=== PATIENT | male | born 1955 | race Caucasian/White ===

== ENCOUNTER 2016-07-23 23:17 | Emergency (ER) | payer OTHER ==
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
[2016-07-23 23:51] VITALS: BP 170/88
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
== END 2016-07-24 00:40 | disposition left against medical advice (07) ==
LOC: MW.ED 23:17
DX: S06.0X9A Concussion with loss of consciousness of unspecified duration, initial encounter (principal); R04.0 Epistaxis; Z23 Encounter for immunization; F17.200 Nicotine dependence, unspecified, uncomplicated; T74.21XA Adult sexual abuse, confirmed, initial encounter
CPT/HCPCS: 70450; 70450-26; 70486; 70486-26; 72125; 72125-26; 99283; 99285-25

== ENCOUNTER 2018-01-05 15:44 | Emergency (ER) | payer OTHER ==
--- NOTE | 2018-01-05 17:07 | EDM.PDOC ---
ED HPI GENERAL MEDICAL PROBLEM - General Chief Complaint: General Stated Complaint: MEDICAL CLEARENCE Time Seen by Provider: 01/05/18 16:06 Source of Information: Reports: Patient History Limitations: Reports: No Limitations - History of Present Illness INITIAL COMMENTS - FREE TEXT/NARRATIVE: HISTORY AND PHYSICAL: History of present illness: Patient is a 62-year-old male who presents to the emergency room with complaints of a generalized headache and high blood pressure. Currently in the custody of law enforcement in here for a medical screening examination. Patient states that he previously had taken 3 separate medications for his blood pressure but has not taken these medications in the past 2-3 months. He states [place] and has not found a primary care provider to have these medications refilled. The recent head injury, trauma or falls. He denies any change in vision, dizziness, near-syncope or syncope. Denies any fever, chills, chest pain, shortness of breath or cough. Denies any GI or symptoms. Review of systems: As per history of present illness and below otherwise all systems reviewed and negative. Past medical history: As per history of present illness and as reviewed below otherwise noncontributory. Surgical history: As per history of present illness and as reviewed below otherwise noncontributory. Social history: No reported history of drug or alcohol abuse. Family history: As per history of present illness and as reviewed below otherwise noncontributory. Physical exam: General: Well-developed and well-nourished 62-year-old male. Alert and oriented. Nontoxic appearing and in no acute distress. HEENT: Atraumatic, normocephalic, pupils equal and reactive bilaterally, negative for conjunctival pallor or scleral icterus, mucous membranes moist, throat clear, neck supple, nontender, trachea midline. No drooling or trismus noted. No meningeal signs Lungs: Clear to auscultation, breath sounds equal bilaterally, chest nontender. Heart: S1S2, regular rate and rhythm without overt murmur Abdomen: Soft, nondistended, nontender. Negative for masses or hepatosplenomegaly. Negative for costovertebral tenderness. Pelvis: Stable nontender. Genitourinary: Deferred. Rectal: Deferred. Skin: Intact, warm, dry. No lesions or rashes noted. Extremities: Atraumatic, negative for cords or calf pain. Neurovascular unremarkable. Neuro: Awake, alert, oriented. Cranial nerves II through XII unremarkable. Cerebellum unremarkable. Motor and sensory unremarkable throughout. Exam nonfocal. Notes: Patient describes this headache as a dull headache. Does not describe it as the worst headache of his life. He believes the headache is due to his elevated blood pressure. States that if law enforcement didn't enforce him to be medical evaluated for clearance, he would not be at the ER. Patient states that he has not taken his blood pressure medications in the past 2-3 months. He does not know the name of these medications, dosing or frequency. HIs is unable to give us the name of the and/or pharmacy and which she had attended and had his medications refilled. Patient's blood pressure reading is elevated. I will give him lisinopril 10 mg once daily, limited amount until he is able to follow-up with a local provider to establish care and have this medication refilled. Patient will be discharged to the custody of law enforcement. Diagnostics: None Therapeutics: Lisinopril 10mg PO Prescription: Lisinopril (#20) Impression: Encounter for medical screening Request medication refill History of hypertension Plan: 1. Take your medication as directed. 2. Please establish care with a local primary care provider or see the [facility] clinic for further evaluation of your high blood pressure and medication refill. 3. Return to the ED as needed and as discussed. Definitive disposition and diagnosis as appropriate pending reevaluation and review of above. Headache Pain Score (Numeric/FACES): 5 - Related Data Allergies Allergy/AdvReac Type Severity Reaction Status Date / Time No Known Allergies Allergy Verified 01/05/18 17:10 Home Meds: Home Meds . [Unable To Obtain] 01/05/18 [History] Past Medical History HEENT History: Reports: None Cardiovascular History: Reports: Hypertension Respiratory History: Reports: None Gastrointestinal History: Reports: None Genitourinary History: Reports: None Musculoskeletal History: Reports: RA Neurological History: Reports: None Psychiatric History: Reports: Anxiety, Depression Endocrine/Metabolic History: Reports: None Hematologic History: Reports: None Oncologic (Cancer) History: Reports: None Dermatologic History: Reports: None - Infectious Disease History Infectious Disease History: Reports: None - Past Surgical History GI Surgical History: Reports: Appendectomy Social & Family History - Family History Family Medical History: Noncontributory ED ROS GENERAL - Review of Systems Review Of Systems: ROS reveals no pertinent complaints other than HPI. ED EXAM, GENERAL - Physical Exam Exam: See Below (See dictation) Course - Vital Signs Last Recorded V/S: Last Vital Signs Temp 98.0 F 01/05/18 17:07 Pulse 91 01/05/18 17:07 Resp 20 01/05/18 17:07 BP 169/106 H 01/05/18 17:07 Pulse Ox 98 01/05/18 17:07 - Orders/Labs/Meds Meds: Medications Discontinued Medications Generic Name Dose Route Start Last Admin Trade Name Freq PRN Reason Stop Dose Admin Lisinopril 10 mg 01/05/18 17:20 Prinivil PO 01/05/18 17:21 ONETIME ONE Departure - Departure Time of Disposition: 17:22 Disposition: Home, Self-Care 01 Clinical Impression: Encounter for medication refill, History of hypertension, Encounter for medical screening examination - Discharge Information Instructions: Hypertension, [id number] Referrals: PCP,None [Primary Care Provider] - Forms: ED Department Discharge Additional Instructions: The following information is given to patients seen in the emergency department who are being discharged to home. This information is to outline your options for follow-up care. We provide all patients seen in our emergency department with a follow-up referral. The need for follow-up, as well as the timing and circumstances, are variable depending upon the specifics of your emergency department visit. If you don't have a primary care physician on staff, we will provide you with a referral. We always advise you to contact your personal physician following an emergency department visit to inform them of the circumstance of the visit and for follow-up with them and/or the need for any referrals to a consulting specialist. The emergency department will also refer you to a specialist when appropriate. This referral assures that you have the opportunity for follow-up care with a specialist. All of these measure are taken in an effort to provide you with optimal care, which includes your follow-up. Under all circumstances we always encourage you to contact your private physician who remains a resource for coordinating your care. When calling for follow-up care, please make the office aware that this follow-up is from your recent emergency room visit. If for any reason you are refused follow-up, please contact the [facility] Department at and asked to speak to the emergency department charge nurse. KASEY Durham [facility] [address] [place] [address] [facility] [address] [place] [id number] 1. Take your medication as directed. 2. Please establish care with a local primary care provider or [facility] for further [facility] of your high blood pressure and medication refill. 3. Return to the ED as needed and as discussed.
[2018-01-05 17:10] VITALS: BP 169/106
[2018-01-05] MEDS ORDERED: Lisinopril 10 MG Tab PO ONE (17:20)
== END 2018-01-05 17:45 | disposition home or self-care (01) ==
LOC: MW.ED 15:44
DX: I10 Essential (primary) hypertension (principal); Z76.0 Encounter for issue of repeat prescription
CPT/HCPCS: 99282; A9270